=== PATIENT | female | born 1950 | race Caucasian/White ===

== ENCOUNTER 2019-10-20 16:03 | Observation (INO) | payer OTHER, SELFPAY ==
[2019-10-20] VITALS (57 sets, daily range): BP systolic 142–194; BP diastolic 66–91; PULSE 57–72; RESP 12–23; TEMP 36.5–36.7; O2SAT 95–100
--- NOTE | 2019-10-20 16:15 | DI.CT_ITS ---
EXAM: CT HEAD - STROKE PROTOCOL CLINICAL HISTORY: Dizziness, headache, syncope versus near syncope. TECHNIQUE: Imaging Protocol: Axial computed tomography images with coronal and sagittal reformatted images were created and reviewed COMPARISON: No exams were available for comparison FINDINGS: Ventricles and Extra axial spaces: Normal in size and morphology for the patient's age. Hemorrhage: None. Cerebral parenchyma: There are areas of decreased attenuation in the white matter consistent with sma ll vessel ischemic disease. Midline shift: None. Brainstem/Cerebellum: Normal. Calvarium: Normal. Visualized Paranasal sinuses/Mastoids: Clear. Soft Tissues: Unremarkable. IMPRESSION: No acute intracranial process. RADIATION DOSE DELIVERED: Total DLP DATA REPOSITORY: All CT scans at this facility are submitted to the National Radiology Data Registry (NRDR) Dose Index Registry (DIR) with the [employer] (ACR). RADIATION OPTIMIZATION: All CT scans at this facility use at least one of these dose optimization te chniques: automated exposure control; mA and/or kV adjustment per patient size (includes targeted exa ms where dose is matched to clinical indication); or iterative reconstruction.
--- NOTE | 2019-10-20 16:18 | ED.GENADUL_ITS ---
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 She reports headache, moderate, global, photophobia and nausea. Family questioned if she was altered-confused. Around 1130 this morning while she was with her , she was found on the ground. No seizure activity was noted. Unclear if this was syncopal, mechanical, seizure activity, or generalized weakness, etc. She does not recall this. She did receive for IV Zofran. Will initiate a cardiac work-up and obtain a stroke CT. Patient is slightly hypertensive. She does appear neurologically intact, is awake, oriented to situation, self, September 2019, unsure of the exact date. Will give a liter of IV fluid, 10 IV Reglan, 25 IV Benadryl. Given her age, headache, concern for intracranial process, will not give IV Toradol. I do not want to make her any more altered, will give IV Tylenol instead. Case and work- up was discussed with Dr. Spence. Initial work-up is rather unremarkable. Laboratory values are unremarkable. Head CT read by radiology as negative. Blood pressure is trending downward with migraine therapy. Patient is now slightly more engaging in her examination, does report that her global headache and nausea is improving. She admits that she is not back to baseline but she is certainly more engaging in her physical examination now. She is agreeable to stay in the ER for a repeat troponin and EKG for a cardiac rule out. Patient was observed in the ER for over 4-1/2 hours. Her repeat EKG performed at 2004, reviewed and interpreted with Dr. Adame reveals sinus bradycardia, ventricular rate of 59. No STEMI. Repeat troponin is less than 0.05. Patient continues to have short-term amnesia regarding today's events. She was witnessed ambulating to the restroom with assistance as fairly unsteady and she does admit that she does not feel as though she is walking as well as she typically does. There is no obvious focal neuro deficit. In conclusion, this is a 68-year-old female who did have an episode today ending up on the ground. Unclear whether she had a mechanical fall striking her head, this is a postconcussive syndrome, versus atypical migraine, and arrhythmia or other etiology causing a syncopal episode. As above CT is unremarkable however certainly cannot 100% exclude a posterior CVA. Ideally MRI would be indicated for more definitive diagnosis but she is well outside window for intervention and emergent transfer is likely not indicated. She does live in [place] but is appear in this area camping. I do not feel as though sending out this symptomatic 68-year-old female back to her camper is the ideal situation at 9:30 at night. I will discuss the case with our hospitalist team for observation admission overnight. I spoke with Dr. Lowry who was agreeable with an observation admission and he will write orders. I discussed this plan with patient who is quite comfortable staying in the hospital overnight for further observation. <Justo Spence MD - Last Filed: 10/20/19 16:33> Patient seen, examined [id number] and discussed with Mr. Robin. I agree with his assessment and plan. <London Adame MD - Last Filed: 10/20/19 21:07> I had a [id number] encounter with the patient. I evaluated the patient. I discussed case with RETAIL INTERIOR DESIGNER/PA and I reviewed RETAIL INTERIOR DESIGNER/PA note and agree with note as documented. HPI <CLAUDIO Morrell - Last Filed: 10/20/19 21:30> General Mode of arrival: EMS . Date/Time Provider Initiated Documentation: 10/20/19 16:16 . Limitations to Documentation: no limitations . Information obtained by: patient and EMS . HPI Narrative: This is a 68-year-old female presenting via EMS. It sounds that the patient either had a mechanical fall and struck her head or had a syncopal episode, this is not clear. Per , patient woke this morning and felt normal. They were going to go horseback riding and prior to getting on the horse he turned around and she was on the ground. He used the words passed out. However he did not see her fall. No seizure activity was witnessed. Patient has a history of hypertension and migraines. She reports a headache, which is moderate and global in nature. She reports sensitivity to light, nausea, but no vomiting. She reports that this pain is fairly typical of her migraines. She denies recent illness. She denies visual changes, fever, neck pain, chest pain, shortness of breath, numbness, tingling, weakness in her extremities. Apparently she was incontinent of urine during her EMS transfer to the ER. She denies dysuria, back pain, diarrhea or constipation. Patient does not recall exactly what happened this morning and is a rather vague historian. Related Data Home Medications Medication Instructions Recorded Confirmed nifedipine PO 10/20/19 Allergies Allergy/AdvReac Type Severity Reaction Status Date / Time No Known Allergies Allergy Unverified 10/20/19 16:35 General Stated Complaint: AMS/LOC WILMER: 3 Review of Systems <CLAUDIO Morrell - Last Filed: 10/20/19 21:30> Constitutional Constitutional: Denies fatigue, Denies fever(s) and Denies weakness Eyes Eyes: Denies change in vision ENT Ears, Nose, Mouth, and Throat: Denies neck pain and Denies sore throat Cardiovascular Cardiovascular: Denies chest pain and Denies dyspnea Respiratory Respiratory: Denies cough and Denies dyspnea Gastrointestinal Gastrointestinal: Denies abdominal pain, Reports nausea and Denies vomiting Genitourinary Genitourinary: Denies dysuria Musculoskeletal Musculoskeletal: Denies back pain, Denies neck pain, Denies numbness, Denies stiffness and Denies tingling Integumentary/Breasts Skin/Breast: Denies rash Neurologic Neurologic: Denies numbness, Denies convulsions, Denies tingling and Denies weakness Endocrine Endocrine: Denies fatigue PFSH <CLAUDIO Morrell - Last Filed: 10/20/19 21:30> Medical History HTN (hypertension) (Chronic) 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) (Acute) Syncope (Chronic) Social History Smoking/Tobacco Use Status: Never Alcohol Intake: current Alcohol Intake frequency: holidays/special occasions only Alcohol type: wine Drug use: Never Substance use type: does not use Do you feel safe at home: Yes Do you feel safe in your relationship?: Yes Exam <CLAUDIO Morrell - Last Filed: 10/20/19 21:30> Const General: cooperative, healthy appearing, comfortable and no acute distress Orientation: alert, awake, oriented to person, oriented to place and confused (Patient knows it is September 2019, unsure of the exact date) [facility] Head: normal to inspection, normocephalic and atraumatic Ears: external ears normal, TM's normal bilaterally and EAC's normal Face and sinus: normal facial exam Mouth: moist mucous membranes Throat: posterior oropharynx normal Eyes General: appearance normal, both eyes and all related structures Alignment and Position: alignment normal Periorbital: periorbital findings normal Eyelids: eyelids normal Conjunctivae: conjunctivae normal Sclera: sclerae normal Pupils: PERRL EOM: EOM intact bilaterally Direct ophthalmoscopy: normal light reflex Neck Neck: normal visual inspection, full ROM, no lymphadenopathy, no meningeal signs, trachea midline, supple and nontender Chest Chest: normal palpation of entire chest wall Resp Effort & Inspection: normal respiratory effort and able to speak in complete sentences Auscultation: clear to auscultation bilaterally Cardio Rate: regular rate Rhythm: regular rhythm GI Inspection: normal to inspection Palpation: soft, not firm, no guarding, not rigid and nontender Auscultation: normal bowel sounds Back/Spine/Pelvis Back: No back tenderness Skin General skin exam: no rashes or lesions noted Neuro General: patient alert, patient awake, moves all extremities, no focal motor deficits and CN's II-XI intact bilaterally Cranial Nerves: CN's II-XI intact bilaterally Cognition: normal cognition Speech: speech normal Gait: normal gait Motor: muscle tone normal throughout, strength 5/5 throughout, no pronator drift, no movement abnormalities noted and no fasciculations Sensory Exam: no sensory deficits noted Coordination: [id number] test normal, Romberg test normal and Does not sway with eyes open Extrem General: normal to inspection, full ROM, capillary refill normal, no pedal edema and no calf tenderness Psych Appearance: grossly normal Mental Status: mental status grossly normal Course <CLAUDIO Morrell - Last Filed: 10/20/19 21:30> Vital Signs Vital signs: Vital Signs Temperature 36.7 C 10/20/19 16:11 Pulse 60 10/20/19 16:11 Respiratory Rate 18 10/20/19 16:11 Blood Pressure 194/82 H 10/20/19 16:11 Pulse Oximetry 98 10/20/19 16:11 Temperature 36.7 C 10/20/19 16:11 Temperature Source Tympanic 10/20/19 16:11 Pulse 60 10/20/19 16:11 Respiratory Rate 18 10/20/19 16:11 Blood Pressure 194/82 H 10/20/19 16:11 Blood Pressure Position Sitting 10/20/19 16:11 Pulse Oximetry 98 10/20/19 16:11 Oxygen Delivery Method Room Air 10/20/19 16:11 Oxygen Flow Rate 0 10/20/19 16:11
[2019-10-20 16:32] LABS: Abs Immature Grans 0.02 k/cumm (0.0-0.09); Absolute Basophil Count 0.03 k/cumm (0.0-0.2); Absolute Eosinophil Count 0.02 k/cumm (0.0-0.7); Absolute Lymphocyte Count 0.95 k/cumm (1.2-3.4); Absolute Monocyte Count 0.22 k/cumm (0.11-0.7); Absolute Neutrophil Count 7.09 k/cumm (1.2-6.7); Basophils % 0.4; Eosinophils % 0.2; HGB 14.6 g/dL (12.0-15.5); Immature Grans % 0.2 %; Lymphocytes % 11.4; Mean Corp. HGB Concentration 32.4 g/dL (32.0-36.0); Mean Corpuscular Hemoglobin 29.7 pg (27.0-33.0); Mean Corpuscular Volume 91.5 fL (80-95); Mean Platelet Volume 9.2 fL (8.0-11.0); Monocytes % 2.6; Neutrophils % 85.2; Platelet Count 381 x1000/uL (130-400); RBC 4.92 m/cumm (4.00-5.20); RBC Distribution Width 14.9 % (11.7-14.6); White Blood Cell Count 8.33 k/cumm (4.4-10.8)
--- NOTE | 2019-10-20 16:36 | NUR.NOTE ---
Nursing Note: information obtained from the patients [place]: Pt was getting ready to ride horse this afternoon with friends when she suddenly experienced a syncopal episode. Pt was found supine on the ground by . Per the Pt was confused and in an out of consciousness for 10-15min. called EMS to have PT transported to ED. PT reports Dizziness and headache. Confusion noted during primary assessment. BGL 96, vitals stable. PMH of HTN, medication and dosage unknown.
[2019-10-20 16:43] LABS: PTT Activated 26.3 sec (21.0-31.4)
[2019-10-20 16:46] LABS: ALT 44 U/L (14-59); AST 31 U/L (15-37); Albumin 3.9 g/dL (3.4-5.0); Alkaline Phosphatase 154 U/L (46-116); Anion Gap 10.1 mmol/L (3-11); BUN 13 mg/dL (7-18); Bilirubin, Total 0.4 mg/dL (0.2-1.0); CO2 23.9 mmol/L (21.0-32.0); CREATININE 0.91 mg/dL (0.55-1.02); Calcium 8.8 mg/dL (8.5-10.1); Chloride 102 mmol/L (98-107); Glucose 100 mg/dL (74-106); Potassium 3.7 mmol/L (3.5-5.1); Sodium 136 mmol/L (136-145); Total Protein 7.8 g/dL (6.4-8.2); Troponin I < 0.05 ng/mL (<0.06)
--- NOTE | 2019-10-20 16:46 | DI.VRAD_ITS ---
PROCEDURE INFORMATION: Exam: CT Head Without Contrast Exam date and time: 10/20/2019 4:18 PM Age: 68 years old Clinical indication: Other: Headache, dizziness TECHNIQUE: Imaging protocol: Computed tomography of the head without contrast. Other technique: STROKE PROTOCOL was implemented. COMPARISON: No relevant prior studies available. FINDINGS: Brain: No acute intracranial hemorrhage. There is mild diffuse heterogeneity of the white matter attenuation, consistent with chronic white matter ischemic changes. Mild cerebral atrophy Ventricles: Normal. No ventriculomegaly. Bones/joints: Unremarkable. No acute fracture. Sinuses: Visualized sinuses are unremarkable. No fluid levels. Mastoid air cells: Visualized mastoid air cells are well aerated. Soft tissues: Unremarkable. IMPRESSION: No acute intracranial hemorrhage. ASSESSMENT: ASPECTS ([place] Stroke Program Early CT Score) is 10 Dictated and Authenticated by: Kim Goodman MD. Ordering:DONTA Escobar MD
[2019-10-20] MEDS: Normal Saline 1,000 ML 150 ML IV (16:49)
[2019-10-20 16:50] LABS: Bilirubin Negative (Negative); Blood Negative (Negative); Clarity Clear (Clear); Glucose Negative (Negative); Ketones 15 mg/dL (Negative); Leukocyte Esterase Negative (Negative); Nitrite Negative (Negative); Urobilinogen 0.2 EU/dL (Up TO 0.2)
[2019-10-20 16:52] LABS: Magnesium 1.8 mg/dL (1.8-2.4)
[2019-10-20] MEDS: diphenhydrAMINE 50 MG/ML VIAL 25 MG IVP (16:52)
[2019-10-20] MEDS: Metoclopramide 10 MG/2 ML VIAL IVP (16:52)
--- NOTE | 2019-10-20 16:53 | NUR.NOTE ---
reports that pt was putting saddles on the horses when the then saw her fall backwards to the dirt . ( at 11;15 )Nursing Note:
[2019-10-20] MEDS: ACETAMINOPHEN 1,000 MG/100 ML BTL 400 MG IVPB (17:30)
[2019-10-20 20:32] LABS: Troponin I < 0.05 ng/mL (<0.06)
--- NOTE | 2019-10-20 20:33 | NUR.NOTE ---
pt is awake and sipping tanvi mack. Nursing Note:
--- NOTE | 2019-10-20 21:05 | HPE_ITS ---
Date of service: 10/20/19 Time of Service: 21:05 Assessment and Plan Assessment and plan (1) Syncope: Start date: 10/20/19 Status: Acute Assessment and plan: This is a 68-year-old lady who had a syncopal episode in the field when walking behind her toward horses which they will plan on biting. She does not remember having a headache or any presyncopal symptoms and in fact has amnesia around the event. She did not have apparently strike her head and imaging was negative for any acute intracranial processes. She did have a headache which is common for her with a migraine type headache typical of her previous migraine headaches with associated photophobia and nausea. She did have incontinence in the field when EMS was transporting her but she states that this is common and there was no reported seizure activity or postictal state though she did have amnesia of the actual event. She does have a history of hypertension on medical therapy and will be observed overnight for arrhythmias because of her inability to ambulate without assistance in the ED. She did not have true vertigo or positive Romberg but simply could not ambulate on her own. She is a vague historian. She does have a history of scleroderma on treatment but she does not know the name of her oral medical therapy. She does [place] specialty care [place] [facility] [place] this problem. Qualifiers: Syncope type: unspecified Qualified Code(s): R55 - Syncope and collapse (2) HTN (hypertension): Status: Chronic Assessment and plan: This is a chronic problem which appears to be well- controlled continue on her usual medical therapy. She did not describe any orthostatic symptoms prior or after her syncopal episode. She will be observed on telemetry overnight. 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 She has never had a complex migraine headache with her having this problem with focal left neurological deficits with headaches. History of Present Illness History of Present Illness Chief Complaint: Syncope with unsteady gait Narrative: This is a 68-year-old lady who has been traveling with her with the [employer] and tow camping in [place], [place] recently. They are originally from [place], she is retired from the [employer] and her retired from [place]. 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 She was walking behind her going to their horses for a ride when her turned around and. She did not apparently injure her head or neck found the patient passed out onto the ground. He did not with witness her fall and with EMS did transfer her she does have incontinence of urine which she states is usual. She was complaining of a migraine headache with associated nausea and photophobia at the time she came to the ED at this did respond to medical therapy. She did not appear to have a headache from trauma. CT scan was negative. Cardiac work-up was negative and labs were unrevealing. She has amnesia of exactly what happened when she syncopized. When her headache was improved and she tried to ambulate she will required assistance and was very unsteady. She was Romberg positive and had no nystagmus. She did not feel the room was spinning. She simply stated that she felt weak and dizzy. Because of her unstable status she was admitted for observation on telemetry rule out any dysrhythmias with a history of hypertension. She also would have frequent neuro checks. At this saw the patient she was stable sleepy but easily aroused. Review of Systems Narrative: 13 point review of systems otherwise unrevealing or stable. The patient had no focal neurological complaints other than her associated photophobia with nausea. 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) (Chronic) Scleroderma (Acute) Syncope (Acute) Urinary incontinence (Acute) Surgical History (Updated 10/21/19 @ 00:12 by Waqas Lowry) Status post gastric banding (Acute) Social History Smoking/Tobacco Use Status: Never Alcohol Intake: current Alcohol Intake frequency: holidays/special occasions only Alcohol type: wine Drug use: Never Substance use type: does not use Do you feel safe at home: Yes Do you feel safe in your relationship?: Yes Meds Home Medications and Allergies Home Medications Medication Instructions Recorded Confirmed Type nifedipine PO 10/20/19 History Allergies Allergy/AdvReac Type Severity Reaction Status Date / Time No Known Allergies Allergy Unverified 10/20/19 16:35 Exam Narrative Exam Narrative: General: Patient appears appropriate for age, well tanned, mykel ened affect with good eye contact and appears alert and oriented to person place and time. He is in no acute distress. HEENT: Normocephalic, eyes with pupils equal and reactive light symmetrically, e xtraocular movement intact with no nystagmus to lateral gaze and sclera anicteric. External ears normal. Oropharynx with dry oral mucosa. Tongue protrudes in the middle. When she smiles there is no facial asymmetry. When she looks up there are symmetrical forehead wrinkles. Neck: Supple without JVD and no auscultated bruits. Back: Stooped posture with no CVA tenderness. Lungs: Fair aeration with clear breath sounds, no adventitious sounds with normal inspiratory to expiratory ratio and no wheeze. Breast: Exam deferred. Heart: Regular rate and rhythm with no murmurs or gallops appreciated. Abdomen: Normal contour, soft and nontender to palpation with no guarding. No palpable hepatosplenomegaly. Bowel sounds positive all quadrants. Genitalia/rectal: Exam deferred. Extremities: Without clubbing, cyanosis or edema. Joints do have osteoarthritic changes with some stiffness and bony abnormalities of the IP joints of the hands especially. Skin: Well tanned, rough texture with good turgor. Neuro: Cranial nerves II through XII grossly intact. Motor with no focalizing deficits or tremor. Romberg was reported negative. Babinski's are absent. Reflexes physiologic and symmetrical. Sensory grossly intact. Results Imaging Imaging Studies: Exam: CT Head Without Contrast Exam date and time: 10/20/2019 4:18 PM Age: 68 years old Clinical indication: Other: Headache, dizziness TECHNIQUE: Imaging protocol: Computed tomography of the head without contrast. Other technique: STROKE PROTOCOL was implemented. COMPARISON: No relevant prior studies available. FINDINGS: Brain: No acute intracranial hemorrhage. There is mild diffuse heterogeneity of the white matter attenuation, consistent with chronic white matter ischemic changes. Mild cerebral atrophy Ventricles: Normal. No ventriculomegaly. Bones/joints: Unremarkable. No acute fracture. Sinuses: Visualized sinuses are unremarkable. No fluid levels. Mastoid air cells: Visualized mastoid air cells are well aerated. Soft tissues: Unremarkable. IMPRESSION: No acute intracranial hemorrhage. ASSESSMENT: ASPECTS ([place] Stroke Program Early CT Score) is 10 Dictated and Authenticated by: Kim Goodman MD. Labs Result diagrams: 10/20/19 15:29 10/20/19 15:29 Labs: Laboratory Results - last 24 hr 10/20/19 10/20/19 10/20/19 15:29 15:29 15:29 WBC 8.33 RBC 4.92 Hgb 14.6 Hct 45.0 MCV 91.5 MCH 29.7 MCHC 32.4 RDW 14.9 H Plt Count 381 MPV 9.2 Immature Gran % 0.2 Neutrophils % 85.2 Lymphocytes % 11.4 Monocytes % 2.6 Eosinophils % 0.2 Basophils % 0.4 Absolute Neutrophils 7.09 H Absolute Lymphocytes 0.95 L Absolute Monocytes 0.22 Absolute Eosinophils 0.02 Absolute Basophils 0.03 PT 10.0 INR 1.0 APTT 26.3 Sodium 136 Potassium 3.7 Chloride 102 Carbon Dioxide 23.9 Anion Gap 10.1 BUN 13 Creatinine 0.91 Estimated GFR/1.73 m2 >= 60.00 Glucose 100 Calcium 8.8 Magnesium 1.8 Total Bilirubin 0.4 AST 31 ALT 44 Alkaline Phosphatase 154 H Troponin I < 0.05 Total Protein 7.8 Albumin 3.9 Urine Color Urine Clarity Urine pH Ur Specific [place] Urine Protein Urine Ketones Urine Blood Urine Nitrite Urine Bilirubin Urine Urobilinogen Ur Leukocyte Esterase Urine Glucose 10/20/19 10/20/19 16:45 20:00 WBC RBC Hgb Hct MCV MCH MCHC RDW Plt Count MPV Immature Gran % Neutrophils % Lymphocytes % Monocytes % Eosinophils % Basophils % Absolute Neutrophils Absolute Lymphocytes Absolute Monocytes Absolute Eosinophils Absolute Basophils PT INR APTT Sodium Potassium Chloride Carbon Dioxide Anion Gap BUN Creatinine Estimated GFR/1.73 m2 Glucose Calcium Magnesium Total Bilirubin AST ALT Alkaline Phosphatase Troponin I < 0.05 Total Protein Albumin Urine Color Yellow Urine Clarity Clear Urine pH 8.0 Ur Specific [place] 1.020 Urine Protein Negative Urine Ketones 15 H Urine Blood Negative Urine Nitrite Negative Urine Bilirubin Negative Urine Urobilinogen 0.2 Ur Leukocyte Esterase Negative Urine Glucose Negative Last Vital Signs Temp 36.5 C 10/20/19 20:31 Pulse 66 10/20/19 20:31 Resp 16 10/20/19 20:31 BP 163/91 H 10/20/19 20:31 Pulse Ox 100 10/20/19 20:31 COVID-19 Screening In the past 14 days, have you traveled outside of [place]?: NO Had IN PERSON contact w/suspected or confirmed C-19 person: No
--- NOTE | 2019-10-20 21:21 | NUR.NOTE ---
pt ambulatory to the BR with assist of nurse . she had a very unsteady gait . she denies using a cane at home her has been out in a car with a friend as they are camping in [place]. they live in [facility] and are here with horses he Nursing Note:
[2019-10-20] MEDS: Normal Saline Flush 10 ML SYR IVP (23:12)
[2019-10-20] MEDS: Normal Saline 1,000 ML 125 ML IV (23:12)
[2019-10-21] VITALS (8 sets, daily range): BP systolic 137–190; BP diastolic 69–98; PULSE 59–93; RESP 16–20; TEMP 36.2–36.8; O2SAT 97–99
[2019-10-21] MEDS: Acetaminophen 325 MG TAB PO ×3 (00:19→23:36)
[2019-10-21] MEDS: Normal Saline 1,000 ML 125 ML IV (06:20)
[2019-10-21 07:21] LABS: HCT 41.1 % (36.0-46.0); HGB 13.4 g/dL (12.0-15.5); Mean Corp. HGB Concentration 32.6 g/dL (32.0-36.0); Mean Corpuscular Hemoglobin 30.2 pg (27.0-33.0); Mean Corpuscular Volume 92.6 fL (80-95); Mean Platelet Volume 9.3 fL (8.0-11.0); Platelet Count 371 x1000/uL (130-400); RBC 4.44 m/cumm (4.00-5.20); RBC Distribution Width 14.8 % (11.7-14.6); White Blood Cell Count 5.84 k/cumm (4.4-10.8)
[2019-10-21 07:27] LABS: ALT 35 U/L (14-59); AST 18 U/L (15-37); Albumin 3.3 g/dL (3.4-5.0); Alkaline Phosphatase 128 U/L (46-116); Anion Gap 8.1 mmol/L (3-11); BUN 12 mg/dL (7-18); Bilirubin, Total 0.4 mg/dL (0.2-1.0); CO2 24.9 mmol/L (21.0-32.0); CREATININE 0.84 mg/dL (0.55-1.02); Calcium 8.3 mg/dL (8.5-10.1); Chloride 107 mmol/L (98-107); Glucose 88 mg/dL (74-106); Potassium 3.6 mmol/L (3.5-5.1); Sodium 140 mmol/L (136-145); Total Protein 6.7 g/dL (6.4-8.2)
[2019-10-21 07:46] LABS: TSH (W/Ref FT4) 2.66 uIU/mL (0.36-3.74)
[2019-10-21] MEDS: NIFEdipine-CR 30 MG TABCR PO (08:18)
--- NOTE | 2019-10-21 09:18 | PDOC.CMIN ---
- If Service Date Differs Date of service: 10/21/19 Time of Service: 09:19 Care Management Initial Assess REASON FOR HOSPITALIZATION:: AMS PAST MEDICAL HISTORY/PAST SURGICAL HISTORY:: HTN (hypertension) (Chronic). 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 Scleroderma (Acute). Syncope (Acute). Urinary incontinence (Acute). Surgical History (Updated 10/21/19 @ 00:12 by Waqas Lowry). Status post gastric banding (Acute) PREVIOUS FUNCTIONAL STATUS/SOCIAL/FAMILY SUPPORTS:: Macy is she two children she and her spouse are here [place]. She states she is indepedent with all ADL's and transportation. She cares for her spouse that has MS. She does have a primary care provider in [facility] where she lives. Barbi Tomlin, [facility] [phone]. CURRENT FUNCTIONAL STATUS:: Macy is alert and engaged during assement. She states she is feeling better. She states she wants to make sure what she was given here for her blood pressure gets prescribed at discharge. I beleive she is actually refering to the baclofen. She is concerned that she receives her medications through mail order and will need to use a local pharmacy. can send prescription to local pharmacy. She will need to have her inpatient chart and new medication list faxed to her primary care for follow up after discharge. ADVANCE DIRECTIVES:: None on file does not want to complete today however understands she should complete them with her spouse. Has patient been provided with info about the portal/API?: Yes Did the patient sign up for the portal?: No CODE STATUS:: Full Code INSURANCE COVERAGE / FINANCIAL ISSUES:: Medicare and [employer] primary CURRENT HOME/COMMUNITY SERVICES/EQUIPMENT:: No current services PRIMARY CARE PHYSICIAN:: Barbi Tomlin MD [facility] POTENTIAL DISCHARGE NEEDS:: Follow up with primary care, presciptions to be filled at local pharmacy. PATIENT/FAMILY EDUCATION NEEDS:: Discharge education, limitations and follow up plan of care including ask me three. ANTICIPATED BARRIERS TO DISCHARGE:: No anticipated barriers. TRANSPORTATION:: Via private car with friends at time of discharge PLAN:: Macy will be discharged home (return to [place]) at time of discharge. She will need close follow up with primary care including faxed discharge summary to [facility]. She will need presciptions sent to local pharmacy to ensure coverage. CM to continue to support discharge needs.
[2019-10-21] MEDS: Baclofen 10 MG TAB PO (10:19)
[2019-10-21 11:10] LABS: COVID-19 RT-PCR UVMMC Result Negative (Negative)
[2019-10-21] MEDS: cloNIDine 0.1 MG TAB PO (11:35)
--- NOTE | 2019-10-21 18:13 | NUR.NOTE ---
Nursing Note: was in room with the provider. D/t concern of hypertension, and her hands and feet getting puffy. he verbally told me to stop the iv fluids. IVF was immediately stopped. awaiting further orders
[2019-10-22 03:56] VITALS: BP 119/73; PULSE 59; RESP 18; TEMP 36.3; O2SAT 97
[2019-10-22 07:43] VITALS: BP 159/82; PULSE 60; RESP 20; TEMP 36.7; O2SAT 97
[2019-10-22] MEDS: NIFEdipine-CR 30 MG TABCR PO (09:29)
[2019-10-22] MEDS: Acetaminophen 325 MG TAB PO (09:30)
--- NOTE | 2019-10-22 09:56 | DSE_ITS ---
Date of service: 10/22/19 Time of Service: 09:57 DS: Diagnosis Discharge Diagnosis (1) Syncope: Status: Acute (2) HTN (hypertension): Status: Chronic (3) 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): Status: Chronic Discharge Plan Disposition Patient Disposition: HOME Condition: Serious Discharge Details Chief Complaint: AMS/LOC Clinical Impression: Syncope, 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) Reason For Visit: SYNCOPE,MIGRAINE HEADACHE WITH AMNESIA,HTN Admit Date/Time: 10/20/19 21:07 Admit Provider: Waqas Lowry Attending Provider: Waqas Lowry Primary Care Provider: Symone,Local ED Provider: Shawn Robin Hospital Course Hospital Course: This is a 68 yo female that presented to the [facility] ED on 10/20/2019. She and her [place] walking [place] with [place]. He turned and saw that she was on the ground. She has no recollection of the event. She was wearing a helmet she assumes because she was walking to horse to ride and she always wears a helmet. It is unclear if she had a syncopal episode or a mechanical fall. Her did not note any seizure-like activity. CT head was negative for any acute findings. She did c/o a headache. Her headache was treated with Tylenol with minimal benefit. She states stiffness in her neck as well. Baclofen 10mg x 1 was helpful with the stiff neck and STEWART. Her BP did elevated to a systolic reading of 190 when she stood for orthostatic BP check. Her pulse did rise. A single dose of Clonidine 0.1mg was given. She does take Nifedipine XL 30mg daily for BP and scleroderma. She will begin amlodipine 5mg daily for better BP control. To f/u with her PCP for further BP management. Telemetry monitoring indicated no arrhythmias. Home Meds and New Rx's Prescriptions: New amlodipine 5 mg tablet 5 mg PO DAILY Qty: 30 RF: 0 baclofen 10 mg tablet 10 mg PO DAILY PRN PRNQty: 6 RF: 0 Continued nifedipine 30 mg Tablet Extended Release 24hr 30 mg PO DAILY RF: 0 Discharge Instructions Activity:: Activity as Tolerated Equipment/Supplies:: No Equipment Needed Diet:: As Tolerated DS: Summary Status at Discharge Functional status at discharge: independent ambulation Overall status at discharge: patient is back to baseline Mental Status: mental status grossly normal Speech and Movement: speech and movement normal Mood: congruent mood Affect: normal affect Exam Const General: cooperative Orientation: alert and oriented x3 Neck Neck: full ROM Resp Effort & Inspection: normal respiratory effort Auscultation: clear to auscultation bilaterally Cardio Rate: regular rate Rhythm: regular rhythm Heart Sounds: S1 normal and S2 normal Neuro General: patient alert and patient oriented x3 Cognition: normal cognition Speech: speech normal Motor: muscle tone normal throughout Extrem General: normal to inspection and no clubbing, cyanosis or edema Psych Mental Status: mental status grossly normal Speech and Movement: speech and movement normal Mood: congruent mood Affect: normal affect DS: Data Vitals/I&O Vitals and I&O: Vital Signs Temperature 36.7 C 10/22/19 07:43 Temperature Source Tympanic 10/22/19 07:43 Pulse 60 10/22/19 07:43 Pulse Rhythm Regular 10/21/19 23:25 Pulse 60 10/20/19 22:10 Respiratory Rate 20 10/22/19 07:43 Respiratory Effort 10/21/19 23:25 Respiratory Depth Normal 10/21/19 23:25 Respiratory Pattern Normal 10/21/19 23:25 Blood Pressure 159/82 H 10/22/19 07:43 Blood Pressure Mean 87 10/20/19 22:00 Blood Pressure Position Sitting 10/20/19 16:11 Pulse Oximetry 97 10/22/19 07:43 Oxygen Delivery Method Room Air 10/22/19 07:43 Oxygen Flow Rate 0 10/22/19 07:43 Pain Level 4 10/22/19 09:30 Comment 10/20/19 22:58 Intake & Output 10/21/19 10/21/19 10/22/19 11:59 23:59 11:59 Intake Total 891.667 / 1071.667 180 / 1071.667 780 / 780 Output Total 500 / 1700 1200 / 1700 1300 / 1300 Balance 391.667 / -628.333 -1020 / -628.333 -520 / -520 Weight 63.6 kg 62.5 kg Intake: IV 891.667 / 891.667 Oral 180 / 180 780 / 780 Output: Urine 500 / 1700 1200 / 1700 1300 / 1300 Other: Urine Color Dark Sharon Yellow Pale Yellow Urine Appearance Cloudy Clear Clear Urine Odor None Normal None Stool Size Large Stool Characteristics Formed Voiding Methods Toilet Toilet Toilet Data Completed and Pending Labs on day of discharge: Labs from last 24 hours 10/20/19 22:10 COVID-19 PCR Negative Mahnaz COVID-19 PCR Not Applicable Ref Test Perform Site [facility] lab [facility] Medical History HTN (hypertension) (Chronic) 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) (Chronic) Scleroderma (Acute) Syncope (Acute) Urinary incontinence (Acute) Surgical History Status post gastric banding (Acute) Social History Smoking/Tobacco Use Status: Never Alcohol Intake: current Alcohol Intake frequency: holidays/special occasions only Alcohol type: wine Drug use: Never Substance use type: does not use Do you feel safe at home: Yes Do you feel safe in your relationship?: Yes
[2019-10-22 11:49] VITALS: BP 143/85; PULSE 66; RESP 19; TEMP 36.9; O2SAT 99
--- NOTE | 2019-10-22 12:33 | CMDISCH_ITS ---
- If Service Date Differs Date of service: 10/22/19 Time of Service: 12:33 LACE Index Scoring Tool - Questions: Length of Stay (in days): 3 Acuity (Admit via E.D.?): Yes E.D. Visits: 1 - Answers: Total Score: 7 Risk of Readmission: Low Risk Care Management Discharge Reason for Hospitalization: AMS Discharge Plan: Macy will return home (to her [place], for now) with no additional services at this time. She has new prescriptions, which CM sent to [facility] in [facility] for copay information, which was a total of $15.03 for three. CM faxed the discharge summary to her PCP for her medications to be mail ordered as well. She will follow up with her PCP and discharge plan of care. She is happy to be going back to [place]. Patient/Family Education Needs: Review discharge instructions regarding activity levels and medications, discussion of self care needs including ask me three.
== END 2019-10-22 13:35 | disposition home or self-care (01) ==
LOC: ER 21:51 → MS 22:28
PROVIDERS: Admitting Provider Family Medicine; Emergency Provider Physician Assistant; PCP Family Medicine; Visit Provider Family Medicine
DX: R55 Syncope and collapse (principal); G43.109 Migraine with aura, not intractable, without status migrainosus; I10 Essential (primary) hypertension; M34.9 Systemic sclerosis, unspecified; Z03.818 Encounter for observation for suspected exposure to other biological agents ruled out
CPT/HCPCS: 36415; 80053; 85027; 93005; 96361; 96374; 96375; 99220; 99239; 99285; U0003; 70450; 81003; 83735; 84443; 84484; 85025; 85610; 85730; 93010; 99217; G0378; J0131; J1200; J2765